=== PATIENT | female | born 1985 | race Caucasian/White ===

== ENCOUNTER 2017-08-31 10:19 | Emergency (ER) | payer OTHER ==
[~2017-08-31 10:19] MED LIST: ABILIFY10 MG PO; ALBUTEROL17 G1 IH; AMOXICILLIN500 MG PO; AMOXICILLIN875 MG PO; ANAPROX DS550 M1 PO; ANAPROX DS550 MG PO; BACTRIM,SEPT1 TABLET PO; BUSPAR10 MG PO; CLEOCIN300 MG PO; CLONAZEPAM1 MG PO; DESYREL 150 MG150 MG PO; Desyrel PO; ESKALITH300 M1 PO; FERGON324 MG PO; Feosol PO; Flagyl PO; IBUPROFEN800 MG PO; IRON325 M1 PO; KEFLEX500 MG PO; LITHIUM CARBON300 M1 PO; LYRICA; MACROBID100 MG PO; METHADONE H5 MG/5 ML PO; METHADONE HCL40 MG PO; METHADONE10 MG PO; METHADOSE10 MG/1 ML PO; MOTRIN800 MG PO; Motrin PO; NAPROSYN-EC500 MG PO; NAPROSYN500 MG PO; NATALCARE RX1 TABLET PO; NEURONTIN300 MG PO; OCUFLOX 0.100 DROP/5 BOTH EYES; PRENATAL CAPSU1 EACH PO; PRENATAL TABLE1 EAC3 PO; ROBITUSSIN AC,T10 ML PO; SERTRALINE HCL100 MG PO; SULFACETAMIDE S15 ML BOTH EYES; TAMIFLU75 MG PO; TRAMADOL HCL50 MG PO; TRAZODONE HCL50 MG PO; TRILEPTAL75 MG PO; TYLENOL/CODE1 TABLET PO; Tylenol Extra Streng PO; VENTOLIN HFA18 GM IH; ZANTAC150 M1 PO; ZANTAC150 MG PO; ZOFRAN4 MG PO; ZOFRAN8 MG PO; ZOLOFT100 MG PO; ZOLOFT25 MG PO; ZOLOFT50 M1 PO; celexa
== END 2017-08-31 10:28 | disposition left against medical advice (07) ==
LOC: EME 10:19
DX: R09.89 Other specified symptoms and signs involving the circulatory and respiratory systems (principal); Z53.21 Procedure and treatment not carried out due to patient leaving prior to being seen by health care provider

== ENCOUNTER 2017-09-08 14:22 | Emergency (ER) | payer OTHER ==
[~2017-09-08] VITALS: Ht 162.6 cm; Wt 67.0 kg
[2017-09-08 15:16] LABS: HEMATOCRIT 42.9 % (36.0-46.0); MCH 24.9 PG (29.0-34.0); MCHC 32.4 G/DL (30.0-36.0); MCV 76.9 FL (83-99); MEAN PLAT.VOLUME 10.1 uM^3 (9.5-12.4); PLATELET COUNT 228 K/uL (156-360); RBC DIS.WIDTH-CV 14.1 % (11.8-14.6); RED BLOOD COUNT 5.58 M/uL (3.80-5.20); WHITE BLOOD COUNT 11.2 K/uL (4.1-10.2)
[2017-09-08 15:24] LABS: CHLORIDE 103 mEq/L (99-109); SODIUM 141 mEq/L (136-147)
[2017-09-08 15:26] LABS: GLUCOSE 84 mg/dL (70-99)
[2017-09-08 15:27] LABS: ANION GAP 12 MEQ/L (2-14)
[2017-09-08 15:30] LABS: GFR ESTIMATE (CALCULATED) > 59 mL/min/; UREA NITROGEN (BUN) 11 mg/dL (9-23)
[2017-09-08 15:37] LABS: TROP-I INTERPRETATION NEGATIVE; TROPONIN-I < 0.01 ng/mL (0.0-0.30)
[2017-09-08 16:53] VITALS: BP 132/84
== END 2017-09-08 16:54 | disposition home or self-care (01) ==
LOC: EME 14:22
DX: M94.0 Chondrocostal junction syndrome [Tietze] (principal); Z79.891 Long term (current) use of opiate analgesic; F17.200 Nicotine dependence, unspecified, uncomplicated
CPT/HCPCS: 71020; 80048; 84484; 85027; 93005; 99281; 99284; J1885

== ENCOUNTER 2017-09-13 18:33 | Emergency (ER) | payer OTHER ==
[~2017-09-13] VITALS: Ht 162.6 cm; Wt 66.4 kg
[2017-09-13 19:16] LABS: HEMATOCRIT 38.9 % (36.0-46.0); MCH 25.1 PG (29.0-34.0); MCHC 32.9 G/DL (30.0-36.0); MCV 76.4 FL (83-99); MEAN PLAT.VOLUME 10.2 uM^3 (9.5-12.4); PLATELET COUNT 188 K/uL (156-360); RBC DIS.WIDTH-CV 14.3 % (11.8-14.6); RBC DIS.WIDTH-SD 39.1 % (39-53); RED BLOOD COUNT 5.09 M/uL (3.80-5.20); WHITE BLOOD COUNT 15.2 K/uL (4.1-10.2)
[2017-09-13 19:27] LABS: CHLORIDE 107 mEq/L (99-109); POTASSIUM 3.4 mEq/L (3.7-5.4); SODIUM 141 mEq/L (136-147)
[2017-09-13 19:29] LABS: GLUCOSE 114 mg/dL (70-99)
[2017-09-13 19:30] LABS: ANION GAP 11 MEQ/L (2-14)
[2017-09-13 19:31] LABS: TOTAL BILIRUBIN 1.6 mg/dL (0.0-1.0)
[2017-09-13 19:33] LABS: ALKALINE PHOSPHATASE 56 IU/L (3-129); GFR ESTIMATE (CALCULATED) > 59 mL/min/
[2017-09-13 19:36] LABS: LIPASE 19 U/L (1.0-51.0)
[2017-09-13 19:37] LABS: UREA NITROGEN (BUN) 26 mg/dL (9-23)
[2017-09-13 20:21] LABS: INFLUENZA A VIRAL ANTIGEN NEGATIVE; INFLUENZA B VIRAL ANTIGEN NEGATIVE
[2017-09-13 21:34] LABS: ADD MIUA? YES; BILIRUBIN NEGATIVE; BLOOD NEGATIVE; COLOR YELLOW ((YELLOW)); GLUCOSE (STRIP) NEGATIVE; KETONES NEGATIVE; LEUKOCYTES MODERATE; NITRITE NEGATIVE; PROTEIN (STRIP) 30; SPECIFIC GRAVITY 1.043 (1.000-1.030)
[2017-09-13 21:38] LABS: BACTERIA RARE /HPF; EPITHELIAL CELLS RARE /HPF; MUCUS TRACE /LPF; RED BLOOD CELLS 0-5 /HPF (0-5); UCUL ADDED? YES
[2017-09-13] MEDS ORDERED: FLONASE16 G1 BOTH NARES (22:34)
[2017-09-13] MEDS ORDERED: KEFLEX500 MG PO (22:34)
[2017-09-13] MEDS ORDERED: VENTOLIN HFA18 GM IH (22:34)
[2017-09-13] MEDS ORDERED: MOTRIN600 MG PO (22:40)
[2017-09-13 22:55] VITALS: BP 134/74
== END 2017-09-13 22:57 | disposition home or self-care (01) ==
LOC: EME 18:33
PROVIDERS: Physician Assistant
DX: J06.9 Acute upper respiratory infection, unspecified (principal); N12 Tubulo-interstitial nephritis, not specified as acute or chronic; I10 Essential (primary) hypertension; J45.909 Unspecified asthma, uncomplicated; F32.9 Major depressive disorder, single episode, unspecified; F41.9 Anxiety disorder, unspecified; F10.10 Alcohol abuse, uncomplicated; F19.10 Other psychoactive substance abuse, uncomplicated; F17.200 Nicotine dependence, unspecified, uncomplicated
CPT/HCPCS: 71020; 74177; 80053; 81003; 83690; 85027; 87086; 87502; 99281; 99284; J0696; J2405; J3010; J7030; J7050

== ENCOUNTER 2017-12-25 20:30 | Emergency (ER) | payer OTHER ==
[~2017-12-25] VITALS: Ht 162.6 cm; Wt 72.8 kg
[~2017-12-25 20:30] MED LIST changes: +FLONASE16 G1 BOTH NARES; +MOTRIN600 MG PO
[2017-12-26] MEDS ORDERED: AUGMENTIN875 MG PO (00:45)
[2017-12-26] MEDS ORDERED: VENTOLIN HFA18 GM IH (00:45)
[2017-12-26] MEDS ORDERED: PREDNISONE20 MG PO (00:45)
[2017-12-26 00:52] VITALS: BP 123/70
== END 2017-12-26 00:52 | disposition home or self-care (01) ==
LOC: EME 20:30
DX: H66.93 Otitis media, unspecified, bilateral (principal); J45.901 Unspecified asthma with (acute) exacerbation; J06.9 Acute upper respiratory infection, unspecified; Z88.6 Allergy status to analgesic agent; Z88.5 Allergy status to narcotic agent; Z88.8 Allergy status to other drugs, medicaments and biological substances
CPT/HCPCS: 71046; 99281; 99283; J2930

== ENCOUNTER 2018-03-09 17:51 | Emergency (ER) | payer OTHER ==
[~2018-03-09] VITALS: Ht 162.6 cm; Wt 75.4 kg
[~2018-03-09 17:51] MED LIST changes: +AUGMENTIN875 MG PO; +PREDNISONE20 MG PO
[2018-03-09] MEDS ORDERED: PEN-VEE K,VEET500 MG PO (19:05)
[2018-03-09] MEDS ORDERED: ULTRAM50 MG PO (19:05)
[2018-03-09 19:24] VITALS: BP 132/98
== END 2018-03-09 19:24 | disposition home or self-care (01) ==
LOC: EME 17:51
DX: K06.8 Other specified disorders of gingiva and edentulous alveolar ridge (principal); F17.200 Nicotine dependence, unspecified, uncomplicated; Z91.040 Latex allergy status; Z88.5 Allergy status to narcotic agent; Z88.6 Allergy status to analgesic agent; Z88.8 Allergy status to other drugs, medicaments and biological substances
CPT/HCPCS: 99281; 99283

== ENCOUNTER 2018-04-05 13:43 | Emergency (ER) | payer OTHER ==
[~2018-04-05] VITALS: Ht 167.6 cm; Wt 72.9 kg
[~2018-04-05 13:43] MED LIST changes: +PEN-VEE K,VEET500 MG PO; +ULTRAM50 MG PO
[2018-04-05 17:43] VITALS: BP 112/64
== END 2018-04-05 17:47 | disposition home or self-care (01) ==
LOC: EME 13:43
DX: T40.1X1A Poisoning by heroin, accidental (unintentional), initial encounter (principal); I10 Essential (primary) hypertension; J45.909 Unspecified asthma, uncomplicated; F32.9 Major depressive disorder, single episode, unspecified; F31.9 Bipolar disorder, unspecified; F41.9 Anxiety disorder, unspecified; F17.200 Nicotine dependence, unspecified, uncomplicated; Z91.040 Latex allergy status; Z88.5 Allergy status to narcotic agent; Z88.6 Allergy status to analgesic agent; Z88.8 Allergy status to other drugs, medicaments and biological substances
CPT/HCPCS: 99281; 99285

== ENCOUNTER 2018-05-06 09:34 | Inpatient (IN) | payer OTHER ==
[~2018-05-06] VITALS: Ht 162.6 cm; Wt 70.2 kg
[2018-05-06 11:21] LABS: AMPHETAMINE NEGATIVE (500 ng/mL); BARBITURATES NEGATIVE (200 ng/mL); BENZODIAZEPINES NEGATIVE (150 ng/mL); BUPRENORPHINE NEGATIVE (10 ng/mL); COCAINE PRESUMPTIVE POSITIVE (150 ng/mL); METHADONE NEGATIVE (200 ng/mL); METHAMPHETAMINE NEGATIVE (500 ng/mL); OPIATES (MORPHINE) PRESUMPTIVE POSITIVE (100 ng/mL); OXYCODONE NEGATIVE (100 ng/mL); PHENCYCLIDINE NEGATIVE (25 ng/mL); PROPOXYPHENE NEGATIVE (300 ng/mL); THC CANNABINOIDS NEGATIVE (50 ng/mL); TRICYCLIC ANTIDEPRESSANTS NEGATIVE (300 ng/mL)
[2018-05-06 12:29] LABS: HEMATOCRIT 38.9 % (36.0-46.0); HEMOGLOBIN 12.3 G/DL (11.9-15.5); MCH 23.7 PG (29.0-34.0); MCHC 31.6 G/DL (30.0-36.0); MCV 75.1 FL (83-99); PLATELET COUNT 260 K/uL (156-360); RED BLOOD COUNT 5.18 M/uL (3.80-5.20); WHITE BLOOD COUNT 8.1 K/uL (4.1-10.2)
[2018-05-06 12:49] LABS: ALBUMIN 4.1 g/dL (3.2-4.8); CHLORIDE 104 mEq/L (99-109); POTASSIUM 3.8 mEq/L (3.7-5.4); SODIUM 140 mEq/L (136-147)
[2018-05-06 12:51] LABS: GLUCOSE 105 mg/dL (70-99); TOTAL PROTEIN 7.4 g/dL (6.4-8.3)
[2018-05-06 12:53] LABS: TOTAL BILIRUBIN 0.9 mg/dL (0.0-1.0)
[2018-05-06 12:54] LABS: SERUM ETHYL ALCOHOL < 10 mg/dL
[2018-05-06 12:55] LABS: ALKALINE PHOSPHATASE 66 IU/L (3-129); CREATININE 0.7 mg/dL (0.6-1.3); GFR ESTIMATE (CALCULATED) > 59 mL/min/
[2018-05-06 12:56] LABS: AST (GOT) 14 IU/L (2-34); UREA NITROGEN (BUN) 11 mg/dL (9-23)
[2018-05-06 12:58] LABS: ALT (GPT) 9 IU/L (3-49)
[2018-05-06 16:02] VITALS: BP 136/73
[2018-05-06 16:12] VITALS: BP 136/73
[2018-05-07 08:16] VITALS: BP 118/65
[2018-05-07 15:15] VITALS: BP 132/62
[2018-05-07 21:54] VITALS: BP 97/55
[2018-05-08 08:00] VITALS: BP 111/62
[2018-05-08] MEDS ORDERED: OPTI-CLEAR15 ML BOTH EYES (10:39)
[2018-05-08] MEDS ORDERED: CIPROFLOXACIN H10 ML BOTH EYES (10:39)
== END 2018-05-08 11:30 | disposition home or self-care (01) | DRG 897 ==
LOC: EME 09:34 → 1WEST 13:36 → EDOF 13:36 → ENRESERV 14:46 → 1WEST 15:28
PROVIDERS: Emergency Medicine
DX: F11.23 Opioid dependence with withdrawal (principal); F14.10 Cocaine abuse, uncomplicated; F17.200 Nicotine dependence, unspecified, uncomplicated; G47.10 Hypersomnia, unspecified; J45.909 Unspecified asthma, uncomplicated; I10 Essential (primary) hypertension
CPT/HCPCS: 80053; 84999; 85027; 90839; 99281; 99284; G0480; Q0177

== ENCOUNTER 2018-06-01 13:50 | Inpatient (IN) | payer OTHER ==
[~2018-06-01] VITALS: Ht 162.6 cm; Wt 70.3 kg
[~2018-06-01 13:50] MED LIST changes: +CIPROFLOXACIN H10 ML BOTH EYES; +OPTI-CLEAR15 ML BOTH EYES
[2018-06-01 16:00] LABS: HEMATOCRIT 39.2 % (36.0-46.0); HEMOGLOBIN 12.5 G/DL (11.9-15.5); MCH 24.1 PG (29.0-34.0); MCHC 31.9 G/DL (30.0-36.0); MCV 75.7 FL (83-99); PLATELET COUNT 224 K/uL (156-360); RBC DIS.WIDTH-CV 13.9 % (11.8-14.6); RBC DIS.WIDTH-SD 37.8 % (39-53); RED BLOOD COUNT 5.18 M/uL (3.80-5.20); WHITE BLOOD COUNT 7.2 K/uL (4.1-10.2)
[2018-06-01 16:19] LABS: ALBUMIN 3.9 G/DL (3.2-4.8); CHLORIDE 103 MEQ/L (99-109); POTASSIUM 4.4 MEQ/L (3.7-5.4); SODIUM 137 MEQ/L (136-147); TOTAL BILIRUBIN 0.6 MG/DL (0.0-1.0)
[2018-06-01 16:28] LABS: APPEARANCE SL.HAZY ((CLEAR)); BILIRUBIN NEGATIVE; BLOOD NEGATIVE; COLOR YELLOW ((YELLOW)); GLUCOSE (STRIP) NEGATIVE; KETONES NEGATIVE; LEUKOCYTES MODERATE; NITRITE NEGATIVE; PROTEIN (STRIP) 30; SPECIFIC GRAVITY 1.017 (1.000-1.030); UROBILINOGEN 0.2 MG/DL (0.2-1.0)
[2018-06-01 16:30] LABS: ACETAMINOPHEN (TYLENOL) < 10 MCG/ML (10-30); ALKALINE PHOSPHATASE 58 IU/L (3-129); ALT (GPT) 8 IU/L (3-49); AST (GOT) 15 IU/L (2-34); CREATININE 0.6 MG/DL (0.6-1.3); GFR ESTIMATE (CALCULATED) > 59 mL/min/; GLUCOSE 102 mg/dL (70-99); SALICYLATE < 1.0 MG/DL (15-30); TOTAL PROTEIN 7.3 G/DL (6.4-8.3); UREA NITROGEN (BUN) 15 mg/dL (9-23)
[2018-06-01 16:31] LABS: SERUM ETHYL ALCOHOL < 10 mg/dL
[2018-06-01 16:36] LABS: BACTERIA RARE /HPF; EPITHELIAL CELLS 2+ /HPF; MUCUS 1+ /LPF; UCUL ADDED? YES; WHITE BLOOD CELLS 15-20 /HPF (0-5)
[2018-06-01 17:01] LABS: PHENCYCLIDINE NEGATIVE (25 ng/mL); THC CANNABINOIDS NEGATIVE (50 ng/mL)
[2018-06-01 17:02] LABS: AMPHETAMINE NEGATIVE (500 ng/mL); BARBITURATES NEGATIVE (200 ng/mL); BENZODIAZEPINES NEGATIVE (150 ng/mL); BUPRENORPHINE NEGATIVE (10 ng/mL); COCAINE PRESUMPTIVE POSITIVE (150 ng/mL); METHADONE NEGATIVE (200 ng/mL); METHAMPHETAMINE NEGATIVE (500 ng/mL); OPIATES (MORPHINE) NEGATIVE (100 ng/mL); OXYCODONE NEGATIVE (100 ng/mL); PROPOXYPHENE NEGATIVE (300 ng/mL); TRICYCLIC ANTIDEPRESSANTS NEGATIVE (300 ng/mL)
[2018-06-02 08:53] LABS: QUANTITATIVE HCG < 4.0 MIU/ML
[2018-06-02 12:11] VITALS: BP 130/64
[2018-06-02 16:02] VITALS: BP 133/60
[2018-06-03 07:59] VITALS: BP 110/53
[2018-06-03 16:07] VITALS: BP 101/55
[2018-06-04 08:15] VITALS: BP 106/54
[2018-06-04 16:52] VITALS: BP 123/59
[2018-06-04 21:37] VITALS: BP 177/64
[2018-06-05 07:37] VITALS: BP 96/53
[2018-06-05 16:20] VITALS: BP 120/61
[2018-06-06 07:42] VITALS: BP 98/48
[2018-06-06 13:51] LABS: APPEARANCE CLEAR ((CLEAR)); BILIRUBIN NEGATIVE; BLOOD MODERATE; COLOR AMBER ((YELLOW)); GLUCOSE (STRIP) NEGATIVE; KETONES NEGATIVE; LEUKOCYTES SMALL; NITRITE NEGATIVE; PROTEIN (STRIP) NEGATIVE; SPECIFIC GRAVITY 1.006 (1.000-1.030)
[2018-06-06 13:58] LABS: BACTERIA NONE SEEN /HPF; EPITHELIAL CELLS RARE /HPF; MUCUS TRACE /LPF; RED BLOOD CELLS 0-5 /HPF (0-5); WHITE BLOOD CELLS 0-5 /HPF (0-5)
[2018-06-06 15:20] VITALS: BP 104/59
[2018-06-07 07:45] VITALS: BP 98/53
[2018-06-07 15:06] VITALS: BP 129/58
[2018-06-08 07:44] VITALS: BP 81/42
[2018-06-08 09:11] LABS: ALBUMIN 3.2 G/DL (3.2-4.8); CHLORIDE 106 MEQ/L (99-109); CREATININE 0.6 MG/DL (0.6-1.3); GFR ESTIMATE (CALCULATED) > 59 mL/min/; GLUCOSE 114 mg/dL (70-99); POTASSIUM 4.5 MEQ/L (3.7-5.4); SODIUM 139 MEQ/L (136-147); TOTAL PROTEIN 6.4 G/DL (6.4-8.3); UREA NITROGEN (BUN) 14 mg/dL (9-23)
[2018-06-08 09:16] LABS: ALKALINE PHOSPHATASE 215 IU/L (3-129); ALT (GPT) 1340 IU/L (3-49); AST (GOT) 320 IU/L (2-34)
[2018-06-08 10:24] VITALS: BP 101/52
[2018-06-08 16:42] VITALS: BP 104/56
[2018-06-09 06:57] LABS: INTER. NORMALIZED RATIO 1.1
[2018-06-09 07:39] VITALS: BP 121/57
[2018-06-09 07:49] LABS: ALBUMIN 3.5 G/DL (3.2-4.8); ALKALINE PHOSPHATASE 220 IU/L (3-129); ALT (GPT) 953 IU/L (3-49); DIRECT BILIRUBIN 1.2 mg/dL (0.0-0.3); TOTAL PROTEIN 7.1 G/DL (6.4-8.3)
[2018-06-09 07:51] LABS: AST (GOT) 137 IU/L (2-34); TOTAL BILIRUBIN 2.1 MG/DL (0.0-1.0)
[2018-06-09 10:25] VITALS: BP 120/63
[2018-06-09 11:47] LABS: HEPATITIS B SURFACE ANTIGEN Nonreactive
[2018-06-09 11:48] LABS: ANTI-HEPATITIS A VIRUS (IGM) Nonreactive
[2018-06-09 11:49] LABS: ANTI-HEPATITIS B CORE (IGM) Nonreactive
[2018-06-09 11:57] LABS: HEPATITIS C ANTIBODY REACTIVE
[2018-06-09 16:11] VITALS: BP 109/58
[2018-06-10 07:51] VITALS: BP 140/73
[2018-06-10 10:00] LABS: ALBUMIN 3.5 G/DL (3.2-4.8); ALKALINE PHOSPHATASE 201 IU/L (3-129); ALT (GPT) 634 IU/L (3-49); CHLORIDE 103 MEQ/L (99-109); CREATININE 0.5 MG/DL (0.6-1.3); GFR ESTIMATE (CALCULATED) > 59 mL/min/; POTASSIUM 3.8 MEQ/L (3.7-5.4); SODIUM 137 MEQ/L (136-147); TOTAL BILIRUBIN 1.8 MG/DL (0.0-1.0); TOTAL PROTEIN 7.6 G/DL (6.4-8.3); UREA NITROGEN (BUN) 13 mg/dL (9-23)
[2018-06-10 10:19] LABS: AST (GOT) 60 IU/L (2-34); GLUCOSE 198 mg/dL (70-99)
[2018-06-10 15:20] VITALS: BP 142/63
[2018-06-11 07:47] VITALS: BP 109/69
[2018-06-13 13:44] LABS: HCV RNA (LOG IU/mL) 2.1 (())
== END 2018-06-11 15:07 | disposition other institution (70) | DRG 897 ==
LOC: EME 13:50 → 1WEST 06-02 11:31 → EDOF 06-02 11:31 → 1WEST 06-02 11:31 → ENRESERV 06-02 12:01 → 1WEST 06-02 12:02
PROVIDERS: Physician Assistant; Psychiatry & Neurology Psychiatry; Specialist
PROC: HZ2ZZZZ Detoxification Services for Substance Abuse Treatment (ICD-10-PCS; principal; 2018-06-02)
DX: F11.10 Opioid abuse, uncomplicated (principal); F12.10 Cannabis abuse, uncomplicated; F14.10 Cocaine abuse, uncomplicated; F17.200 Nicotine dependence, unspecified, uncomplicated; B18.2 Chronic viral hepatitis C; F32.9 Major depressive disorder, single episode, unspecified; R45.851 Suicidal ideations; J45.909 Unspecified asthma, uncomplicated; R56.9 Unspecified convulsions; R17 Unspecified jaundice; G43.909 Migraine, unspecified, not intractable, without status migrainosus; F41.9 Anxiety disorder, unspecified; Z59.0 Homelessness; Z91.19 Patient's noncompliance with other medical treatment and regimen
CPT/HCPCS: 71046; 76705; 80053; 80074; 80076; 81003; 84702; 84999; 85027; 85610; 87077; 87086; 87522 90; 90839; 97150 GO; 97165 GO; 99281; 99284; G0480; Q0169; Q0177